=== PATIENT | female | born 1980 | race Caucasian/White ===

== ENCOUNTER 2019-09-08 17:15 | Emergency (ER) | payer SELFPAY ==
[~2019-09-08] VITALS: Ht 162.6 cm; Wt 103.4 kg
[2019-09-08 17:28] VITALS: Ht 162.6 cm; Wt 103.4 kg
[2019-09-08 18:23] LABS: BASOPHIL % 0.3 % (0-2); PLATELET COUNT 242 x10^3mcL (130-400); RED CELL DISTRIBUTION WIDTH 13.4 % (11.5-14.5)
[2019-09-08 18:41] LABS: CALCIUM 8.9 mg/dL (8.5-10.1); CARBON DIOXIDE 24.7 mmol/L (21-32); CHLORIDE SERUM 98 mmol/L (98-107); CREATININE SERUM 0.9 mg/dL (0.6-1.0); GFR1 > 60 mL/min; GLUCOSE SERUM 139 mg/dL (74-106); POTASSIUM SERUM 3.3 mmol/L (3.5-5.1); SODIUM SERUM 133 mmol/L (136-145)
[2019-09-08 18:54] LABS: ALBUMIN 3.1 g/dL (3.4-5.0); ALKALINE PHOSPHATASE 107 U/L (46-116); ALT/SGPT 56 U/L (14-59); AST/SGOT 75 U/L (15-37); FREE T4 1.13 ng/dL (0.76-1.46); TOTAL PROTEIN, SERUM 8.2 g/dL (6.4-8.2)
[2019-09-08 22:14] VITALS: BP 132/84
== END 2019-09-08 22:14 | disposition home or self-care (01) ==
LOC: ED 17:15
PROVIDERS: Student in an Organized Health Care Education/Training Program
DX: U07.1 COVID-19 (principal)
CPT/HCPCS: 83880; 84439; 85378; J7030; Q0092; U0003-CS

== ENCOUNTER 2019-09-15 13:42 | Emergency (ER) | payer SELFPAY ==
[~2019-09-15] VITALS: Ht 165.1 cm; Wt 104.3 kg
[2019-09-15 14:00] VITALS: BP 113/78; Ht 165.1 cm; Wt 104.3 kg
== END 2019-09-15 14:47 | disposition home or self-care (01) ==
LOC: ED 13:42
DX: R06.02 Shortness of breath (principal); R53.83 Other fatigue